=== PATIENT | female | born 1935 | race Caucasian/White ===

== ENCOUNTER 2017-05-09 13:53 | Inpatient (IN) | payer OTHER, MEDICARE ==
--- NOTE | 2017-05-09 14:21 | EDPHY ---
H & P Time Seen by Provider: 05/09/17 14:04 HPI/ROS: CHIEF COMPLAINT: Worsening back pain HISTORY OF PRESENT ILLNESS: Patient has chronic back pain and an MRI in February of last year that showed spinal stenosis worse in the L3 region. Over the last 24-48 hours she has had worsening back pain. Central and left-sided radiating to her left buttock and hip. Today it is severe and she can't get out of bed because it is much worse with any movement. It is not associated with incontinence or weakness or numbness of extremities, or recent fall injury or trauma or fever. REVIEW OF SYSTEMS: Eye: no change in vision ENT: no sore throat Cardiac: no chest pain or syncope Pulmonary: no cough or SOB. She specifically denies any respiratory symptoms. Abdomen: no vomiting, diarrhea, abdominal pain Musculoskeletal: HPI Skin: no rash Neuro: no headache Constitutional: no fever : no urinary symptoms A comprehensive 10 point review of systems is otherwise negative aside from elements mentioned in the history of present illness. PAST MEDICAL HISTORY: Atrial fibrillation, on Coumadin. Spinal stenosis. Carotid endarterectomy and appendectomy. Stroke 16 years ago. Social history: Nonsmoker. Lives at [facility]. General Appearance: Alert and conversant, cooperative. Eyes: No scleral icterus. ENT, Mouth: Normal mucous membranes. Respiratory: Normal respiratory effort, breath sounds equal, lungs are clear to auscultation. Cardiovascular: Regular rate and rhythm. Gastrointestinal: Abdomen is soft and non tender. Neurological: Alert and oriented x3. Normally conversant. Face symmetric, normal movement and sensation in all extremities. Toes downgoing bilaterally, no clonus, 1+ symmetric patellar reflexes. No spinal tenderness but she does have tenderness over the sciatic notch on the left. Skin: Warm and dry, no rashes. Musculoskeletal: No peripheral edema and no joint swelling. Psychiatric: Not agitated. Emergency Department course/MDM: Leonila Scott 1420; MRI, admit to Medicine, Neurosurgery consult I think it is unlikely she has retroperitoneal hematoma or acute spinal cord compromise or cauda equina syndrome. Does not have urinary symptoms to suggest pyelo renal colic. Admission for severe back pain inability to care for self. Initial oxygen saturation noted in the 80s but no respiratory symptoms. INR is therapeutic so pulmonary embolism unlikely. X-ray does not show infiltrate or CHF. Will monitor. Smoking Status: Former smoker Constitutional: Initial Vital Signs Temperature (C) 36.4 C 05/09/17 13:53 Heart Rate 74 05/09/17 13:53 Respiratory Rate 16 05/09/17 13:53 Blood Pressure 139/86 H 05/09/17 13:53 O2 Sat (%) 84 L 05/09/17 13:53 O2 Delivery Mode Room Air Allergies/Adverse Reactions: No Known Allergies Allergy (Unverified 02/28/16 15:27) Home Medications: Medication Instructions Recorded Levothyroxine [Synthroid 150 mcg 150 mcg PO DAILY06 02/28/16 (*)] WARFARIN SODIUM [COUMADIN] 5 mg PO DAILY@18 05/09/17 Medical Decision Making - Diagnostics Imaging Results: Imaging Impressions Chest X-Ray 05/09/17 14:37 Impression: Suspect airways disease. No pneumonia or CHF. Lumbar Spine X-Ray 05/09/17 14:37 Impression: Stable severe multilevel degenerative change. Differential Diagnosis: See HPI Consult/Admit Bed Type: [place] [id number] - Data Points Medications Given: Discontinued Medications Lorazepam (Ativan Injection) 0.5 mg IVP ONCE ONE Stop: 05/09/17 17:46 Last Admin: 05/09/17 17:48 Dose: 0.5 mg Departure - Departure Disposition: [facility] Inpatient Acute Clinical Impression: Back pain Qualifiers: Back pain location: low back pain Chronicity: acute Back pain laterality: left Sciatica presence: with sciatica Sciatica laterality: sciatica of left side Qualified Code(s): M54.42 - Lumbago with sciatica, left side Spinal stenosis Qualifiers: Spinal region: unspecified Qualified Code(s): M48.00 - Spinal stenosis, site unspecified Condition: Good
[2017-05-09 15:34] LABS: % IMMATURE GRANULYOCYTES 0.3 % (0.0-1.1); ABSOLUTE IMMATURE GRANULOCYTES 0.03 10^3/uL (0.00-0.10); ADD DIFF? NO; ADD MORPH? NO; ADD SCAN? NO; ATYPICAL LYMPHOCYTE FLAG 20 (0-99); FRAGMENT RBC FLAG 0 (0-99); HEMATOCRIT 46.7 % (38.0-47.0); HEMOGLOBIN 15.3 g/dL (12.6-16.3); LEFT SHIFT FLG 0 (0-99); LIPEMIA HEMOLYSIS FLAG 80 (0-99); MEAN CELL HEMOGLOBIN 28.8 pg (27.9-34.1); MEAN CELL HEMOGLOBIN CONCENTR. 32.8 g/dL (32.4-36.7); MEAN CELL VOLUME 87.8 fL (81.5-99.8); MEAN PLATELET VOLUME 11.5 fL (8.7-11.7); PLATELET CLUMPS FLAG 0 (0-99); PLATELET COUNT 199 10^3/uL (150-400); RED BLOOD CELL COUNT 5.32 10^6/uL (4.18-5.33); RED CELL DISTRIBUTION WIDTH 14.9 % (11.5-15.2)
[2017-05-09 15:43] LABS: INR 2.67 (0.83-1.16); PROTIME(PATIENT) 28.7 SEC (12.0-15.0)
[2017-05-09 15:44] LABS: ANION GAP 13 mEq/L (8-16); CALCIUM 9.3 mg/dL (8.5-10.4); CARBON DIOXIDE 21 mEq/l (22-31); CHLORIDE 108 mEq/L (97-110); CREATININE 1.3 mg/dL (0.6-1.0); GLOMERULAR FILTRATION RATE 39; GLUCOSE 81 mg/dL (70-100); POTASSIUM 4.6 mEq/L (3.5-5.2); SODIUM 142 mEq/L (134-144)
[2017-05-09] MEDS ORDERED: ONDANSETRON 4 MG/2 ML VIAL IVP PRN (16:07)
[2017-05-09] MEDS ORDERED: POLYETHYLENE GLYCOL 3350 17 GM PKT PO PRN (16:07)
[2017-05-09] MEDS ORDERED: LACTULOSE 20 GM/30 ML UDCUP PO PRN (16:07)
[2017-05-09] MEDS ORDERED: MAGNESIUM HYDROXIDE 30 ML UDCUP PO PRN (16:07)
[2017-05-09] MEDS ORDERED: oxyCODONE IR 5 MG TAB PO PRN (16:07)
[2017-05-09] MEDS ORDERED: BISACODYL 10 MG SUPP PR PRN (16:07)
[2017-05-09] MEDS ORDERED: LIDOCAINE 5% 1 EA PATCH TD SCH (16:15)
--- NOTE | 2017-05-09 16:29 | GHP ---
[f rep st] HISTORY AND PHYSICAL DATE OF ADMISSION: 05/09/2017 CHIEF COMPLAINT: Back pain. HISTORY OF PRESENT ILLNESS: This is an 81-year-old female with history of lumbar spinal stenosis, p resented to the emergency department with severe low back pain. The pain began yesterday after she awoke from a nap. She denies any trauma. The pain is left-sided and is below her waist and radiate s to the back of her left leg. It is described as a sharp 8/10 stabbing pain that is worse with mov ement. The pain is preventing her from being able to walk. She took some Tylenol at home without a ny improvement. Since the onset of her symptoms, she has not gotten out of bed. She was not able t o get out of bed for dinner last night. She denies any fevers or chills. She denies any weight los s. PAST MEDICAL HISTORY: 1. Atrial fibrillation, on Coumadin. 2. Pre diabetes. 3. 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 4. Spinal stenosis. 5. Hypothyroidism. PAST SURGICAL HISTORY: 1. Carotid endarterectomy. 2. Appendectomy. HOME MEDICATIONS: Reviewed. Refer to [employer] for details. ALLERGIES: No known drug allergies. SOCIAL HISTORY: She lives at [facility]. She quit smoking 16 years ago after her stroke. She denies any alcohol or illicit drug use. FAMILY HISTORY: Reviewed and noncontributory. REVIEW OF SYSTEMS: Comprehensive 10-point review of systems was done and is negative, except for as mentioned in the HPI. PHYSICAL EXAM: VITAL SIGNS: Blood pressure 139/86, pulse 74, respiratory rate 16, O2 saturation 84 % on room air. Temperature afebrile. GENERAL: No acute distress. HEAD: Normocephalic, atraumati c. EYES: PERRLA. Sclerae anicteric. MOUTH: Moist mucous membranes. NECK: Supple. No lymphade nopathy. CARDIOVASCULAR: S1-S2. No JVD. No lower extremity edema. PULMONARY: Lungs are clear. No wheezes, rales, or rhonchi. Diminished breath sounds bilateral bases. ABDOMEN: Soft, nontende r, nondistended. No guarding or rebound tenderness. Normoactive bowel sounds. EXTREMITIES: No cl ubbing or cyanosis. NEURO: Cranial nerves 2-12 grossly intact. No focal motor or sensory deficits . No saddle anesthesia. The patient denies any bowel or bladder incontinence. Muscle strength 5/5 bilateral lower extremity flexion, extension at the hip and at the ankle. DTRs are 2+ and symmetri c at the patella. SKIN: Clear, no rashes. DIAGNOSTICS: MRI of the lumbar spine done 02/28/2016 was reviewed that showed severe acquired centr al canal stenosis at L2-L3 with tethering of the cauda equina. Superimposed right paracentral protr usion with lateral recess stenosis and moderate to severe acquired central canal stenosis at L3-L4. Lumbar x-rays are currently pending. Chest x-ray, which I visualized and personally interpreted, s hows no cardiomegaly. No obvious pneumonia. WBCs 8.64, hemoglobin 15.3, hematocrit 46.7, platelets 199. INR 2.67, sodium 142, potassium 4.6, chloride 108, CO2 21, BUN 25, creatinine 1.3, glucose 81 . ASSESSMENT/PLAN: This is an 81-year-old female, with known spinal stenosis presenting with: 1. Atraumatic severe low back pain causing immobility, gait disturbance. 2. Plan: At this time, the patient will be admitted to the hospital since she is unable to walk or care for self at her independent living situation. We will hold her Coumadin in case she ends up n eeding an ELDON. Neurosurgery has been consulted. The patient does not appear to have any signs or s ymptoms of cauda equina syndrome. 3. Hypoxemia. Unclear if this is acute or chronic. It does appear to be asymptomatic. Plan: The patient will be placed on supplemental oxygen and we will have monitoring of her oxygen saturations . 4. History of hypothyroidism. 5. Plan: We will check a TSH since suppressed TSH can be a cause for osteopenia. 6. The patient is high risk for VTE and will be placed on Lovenox for deep venous thrombosis prophy laxis, once her INR has normalized. We will repeat INR in the morning. /[id number]/MODL
[2017-05-09] MEDS ORDERED: LORazepam 2 MG/ML INJ IVP ONE (17:45)
[2017-05-09] MEDS: SENNOSIDES/DOCUSATE SODIUM TAB PO SCH (20:39)
[2017-05-09] MEDS ORDERED: PATCH REMOVAL 1 EA PATCH TD SCH (21:00)
--- NOTE | 2017-05-10 02:50 | GCON ---
[f rep st] CONSULTATION DATE OF CONSULTATION: 05/09/2017 CHIEF COMPLAINT: Left lower back pain, right hip, right buttock pain in the morning HISTORY OF PRESENT ILLNESS: This patient is an 81-year-old female, being seen in the ER by myself at 2:45 p.m. The patient presented to the ER today with increasing back symptoms. She describes her symptoms as left lower back pain. At this time, she denies any radicular symptoms, but does note that she has some right hip and right buttock pain when she is first getting out of bed in the morning. The patient states that she had persistent leg pain approximately 20 years ago , which was resolved with acupuncture at the time, but is unable to recall which leg or which part of her leg was affected. She does have bowel and bladder incontinence and she states she wears Depends for this for the last 16 years. She states these bowel and bladder issues began following a stroke 16 years ago and describes them more as an urge incontinence, where she does not have time to get to the restroom. She denies any saddle anesthesia. Patient has had several years of lower back pain. She has been seen by physicians at [facility] previously, but has never undergone any therapeutic injections into her spine. REVIEW OF SYSTEMS: Nagetive except for those noted in the HPI. PAST MEDICAL HISTORY: Patient had a stroke 16 years ago. She has atrial fibrillation. hypothyroidism. PAST SURGICAL HISTORY: Carotid surgery 16 years ago, appendectomy. FAMILY HISTORY: Patient states her mom had a history of breast cancer, myocardial infarction, and bladder cancer. Her father had skin cancer. SOCIAL HISTORY: Patient lives in independent residence at [facility]. She does not smoke. She takes sips of wine socially. She denies any drug use. MEDICATIONS: Coumadin, levothyroxine ALLERGIES: No known drug allergies. PHYSICAL EXAMINATION: Patient is alert and oriented to person, time, situation , and place. UPPER EXTREMITIES: Deltoid, biceps, and triceps, wrist extensors, interossei bilaterally are 5/5. LOWER EXTREMITIES: Quadriceps, hamstrings, extensor hallucis longus, tibialis anterior bilaterally are all 5/5. Bilateral lower extremities, sensory intact to light touch throughout. Did not assess patient's gait, for she is on a stretcher. DIAGNOSTIC DATA: MRI of the lumbar spine, without contrast, that was performed on February 28, 2016, demonstrated severe central canal stenosis at L2-3 with tethering of the cauda equina and superimposed right paracentral protrusion with lateral recess stenosis. Also, had [id number] acquired central canal stenosis at L3-4. Pending new MRI of the lumbar sine without contrast today, as well as x-rays of the lumbar spine to evaluate her present condition. ASSESSMENT AND PLAN: Patient is an 81-year-old female, presenting to the emergency room today with increasing left lower back pain. She has a history of bowel and bladder incontinence for approximately 16 years and feels that this correlates with her post stroke symptoms. We will have the patient get a new lumbar MRI as well as x-rays of her lumbar spine to evaluate her current condition. If injection therapy or surgery were to be offered, she will need to be off her Coumadin for any procedures. Patient is not interested in pursing a surgical solution to her problem. Patient was seen in the emergency room today, May 09, 2017, at 2:35 p.m., and the patient was discussed with Dr. Nascimento as well. NEUROSURGERY ATTENDING NOTE I met with the patient on the evening of her admission. She has known stenosis and about 24 hours of pain into her back. She has a normal clinical examination and no red flag findings.. Will obtain imaging studies and treat with conservative management. She is not interested in surgery. All questions answered. /[id number]/MODL MTDD
[2017-05-10] MEDS: LEVOTHYROXINE 150 MCG TAB PO SCH (05:13)
[2017-05-10] MEDS: PATCH REMOVAL 1 EA PATCH TD SCH (05:22)
[2017-05-10 05:44] LABS: INR 2.82 (0.83-1.16)
[2017-05-10] MEDS: SENNOSIDES/DOCUSATE SODIUM TAB PO SCH ×2 (08:34→20:16)
--- NOTE | 2017-05-10 08:40 | NEUSURGPN ---
Assessment/Plan: A: 81 yo F with low back pain, right hip pain, severe stenosis L2-3, L3-4 Plan: -Pain management -PT/OT -Need to see how patient does with therapies today. If pain improved can work towards DC. If she has persistent pain and is unable to ambulate need to consider ELDON -Neuro intact on exam today -D/w Dr Nascimento -Call NS with any issues Subjective: Pt resting in bed, states she was able to get up to bedside commode. Thinks pain slightly improved. Objective: AAOx3 NAD VSS MAEx4 Motor 5/5 BLE +LT Urinary Catheter in Place: No - Physician Discussed Patient with : [facility] Physical Exam - Vitals, I&O, Labs I and O 05/09/17 05/10/17 05/11/17 05:59 05:59 05:59 Intake Total 600 Balance 600 Weight 81.647 kg Intake: Oral (ml) 600 Other: Number of Voids Incontinence 1 Vital Signs Temp Pulse Resp BP Pulse Ox 36.7 C 83 16 125/70 H 90 L 05/10/17 08:05 05/10/17 08:05 05/10/17 08:05 05/10/17 08:05 05/10/17 08:05 Laboratory Results 05/09/17 15:27 05/09/17 15:27 ICD10 Worksheet Patient Problems: Problems Problem Status Onset Back pain Acute Spinal stenosis Acute
[2017-05-10] MEDS: ACETAMINOPHEN 325 MG TAB PO PRN ×2 (08:41→17:25)
[2017-05-10] MEDS: METHOCARBAMOL 500 MG TAB PO PRN ×2 (08:42→17:25)
--- NOTE | 2017-05-10 11:13 | HOSPPROG ---
Hospitalist Progress Note Assessment/Plan: DIAGNOSES: -acute sciatica without weakness or cauda equina syndrome -impaired ambulation due to above -severe central canal stenosis and bilateral foraminal stenosis on MRI of lumbar spine Notably she has acutely a complaint of left lumbar back pain, with radiation to the posterior left leg, but also has pain in the right buttock which is more chronic. Her MRI findings show central canal stenosis but the foramina stenoses are on the right. Therefore her right-sided foraminal stenoses could potentially impact her chronic right buttock pain but not likely her acute presenting symptoms, which if related to her spine findings would be more than related to her central canal stenosis. There is some improvement here with conservative treatment overnight so hopefully we can continue with conservative measures and have her discharge soon. She does have a history of a prior episode of sciatica which successfully responded to acupuncture therapy PLANS: -continue current measures and reassess her pain levels and mobility -home when she has satisfactory pain control and safe mobility SUBJECTIVE: She states her pain has improved somewhat today and she is able to get up with a walker and ambulate in the hallway moderate distance No new neurologic deficits or symptoms OBJECTIVE Vitals reviewed: Stable without fever Exam: alert oriented skin warm dry color ok resps not labored lungs clear BSs heart regular abd soft nondistended nontender, bowel sounds present Moving her legs well Objective: Vital Signs Temp Pulse Resp BP Pulse Ox 36.7 C 83 16 125/70 H 90 L 05/10/17 08:05 05/10/17 08:05 05/10/17 08:05 05/10/17 08:05 05/10/17 08:05 Laboratory Results 05/09/17 15:27 05/09/17 15:27 05/09/17 05/10/17 05/11/17 06:59 06:59 06:59 Intake Total 600 Balance 600 PT 30.0 SEC (12.0-15.0) H 05/10/17 05:22 INR 2.82 (0.83-1.16) H 05/10/17 05:22 ICD10 Worksheet Patient Problems: Problems Problem Status Onset Back pain Acute Spinal stenosis Acute
[2017-05-10] MEDS ORDERED: LIDOCAINE 5% 1 EA PATCH TD SCH (19:00)
[2017-05-11] MEDS: LEVOTHYROXINE 150 MCG TAB PO SCH (06:02)
[2017-05-11] MEDS: PATCH REMOVAL 1 EA PATCH TD SCH (06:03)
[2017-05-11 06:06] VITALS: RESP 16
[2017-05-11 08:39] VITALS: BP 104/58; PULSE 80; TEMP 97.9; O2SAT 91
[2017-05-11] MEDS: SENNOSIDES/DOCUSATE SODIUM TAB PO SCH (09:24)
--- NOTE | 2017-05-11 13:21 | HOSPPROG ---
Hospitalist Progress Note Assessment/Plan: 81 yo F with hx of lumbar spinal stenosis presenting with severe radicular back pain # lumbar radiculopathy: with hx of lumbar stenosis and presenting initially with severe low back pain radiating to her left leg. Sxs have improved significantly since admission and she is now ambulating nearly at baseline. MRI personally reviewed with severe central canal stenosis at L2-3 and L3-4. NSG consulted for possible ELDON, however given patient preference and rapid improvement, this is unlikely to be necessary. Patient states in the past when this occurred, she was essentially healed by acupuncture. Will see if she can get IP versus f/u acupuncture, continue pt/ot and likely dc back to independent living with home health today # a fib: will continue warfarin, rate controlled # hypothyroid: continue lt4 # dispo: IP status, likely can dc home today with home health Patient new to my care. Old records reviewed and summarized as above. Care plan reviewed with CM> Subjective: doing much better today, pain is much improved, ambulating nearly at baseline Objective: Vital Signs Temp Pulse Resp BP Pulse Ox 36.6 C 80 16 104/58 L 91 L 05/11/17 08:39 05/11/17 08:39 05/11/17 08:39 05/11/17 08:39 05/11/17 08:39 Laboratory Results 05/09/17 15:27 05/09/17 15:27 05/10/17 05/11/17 05/12/17 05:59 05:59 05:59 Intake Total 600 Output Total 4 Balance 600 -4 PT 30.0 SEC (12.0-15.0) H 05/10/17 05:22 INR 2.82 (0.83-1.16) H 05/10/17 05:22 awake alert nad anicteric op clear rrr no mrg cta b soft nt nd no cce warm dry well perfused oriented appropriate ICD10 Worksheet Patient Problems: Problems Problem Status Onset Back pain Acute Spinal stenosis Acute
--- NOTE | 2017-05-11 13:28 | PDIAF ---
- Diagnosis Code Status: Full Code - Medication Management Discharge Medications: Medications to Continue on Transfer Levothyroxine [Synthroid 150 mcg (*)] 150 mcg PO DAILY06 02/28/16 [Last Taken ] WARFARIN SODIUM [COUMADIN] 5 mg PO DAILY@18 05/09/17 [Last Taken 05/08/17] Acetaminophen [Tylenol 325mg (*)] 650 mg PO Q6 PRN #0 tab 05/11/17 [Last Taken Unknown] Lidocaine 5% [Lidoderm 5% Patch (*)] 1 ea TD DAILY@1900 #30 patch 05/11/17 [ Last Taken Unknown] Methocarbamol [Robaxin 500 mg (*)] 1,000 mg PO QID PRN #60 tab 05/11/17 [Last Taken Unknown] Patch Removal 1 ea TD DAILY@0700 #30 patch 05/11/17 [Last Taken Unknown] Sennosides/Docusate Sodium [Senokot-S] 1 - 2 tab PO BID tab 05/11/17 [Last Taken Unknown] oxyCODONE IR [Oxycodone Ir (*)] 5 - 10 mg PO Q6 PRN #30 tab 05/11/17 [Last Taken Unknown] Discharge Medications: Refer to the Discharge Home Medication list for PRN reason. - Orders Services needed: Home Care, Registered Nurse, Physical Therapy, Occupational Therapy Home Care Face to Face: I certify that this patient was under my care and that I had the required [id number] encounter meeting the encounter requirements on the discharge day. My findings support the fact that the patient is homebound as defined in CMS Chapter 7 Medicare Benefits Manual 30.1.1, The condition of the patient is such that there exists a normal inability to leave home and consequently, leaving home would require a considerable and taxing effort. Diet Recommendation: no restrictions on diet - Follow Up Care Current Providers and Referrals: Padmini Gordillo MD [Primary Care Provider] - As per Instructions
--- NOTE | 2017-05-11 13:28 | PDDCSUM ---
Discharge Summary Discharge Summary: Dates of service 05/09-05/11/17 Discharge diagnosis: # lumbar radiculopathy # a fib Consultations: neurosurgery Procedures performed: lumbar MRI Hospital course by problem: # lumbar radiculopathy: initially with severe pain that rapidly improved, seems muscle relaxants have made a huge difference and pain is currently well controlled. will dc home with home pt/ot and flexeril. # a fib: not on any rate controlling meds, will continue warfarin, is currently therapeutic Dc home, lives independently, will continue pt/ot Meds: see EHR > 35 minutes spent in discharge of patient, more than half in coordination of care
--- NOTE | 2017-05-11 15:31 | PDIAF ---
- Diagnosis Code Status: Full Code - Medication Management Discharge Medications: Medications to Continue on Transfer Levothyroxine [Synthroid 150 mcg (*)] 150 mcg PO DAILY06 02/28/16 [Last Taken ] WARFARIN SODIUM [COUMADIN] 5 mg PO DAILY@18 05/09/17 [Last Taken 05/08/17] Acetaminophen [Tylenol 325mg (*)] 650 mg PO Q6 PRN #0 tab 05/11/17 [Last Taken Unknown] Cyclobenzaprine [Flexeril 10 MG (*)] 10 mg PO TID PRN #90 tab 05/11/17 [Last Taken Unknown] Lidocaine 5% [Lidoderm 5% Patch (*)] 1 ea TD DAILY@1900 #30 patch 05/11/17 [ Last Taken Unknown] Patch Removal 1 ea TD DAILY@0700 #30 patch 05/11/17 [Last Taken Unknown] Sennosides/Docusate Sodium [Senokot-S] 1 - 2 tab PO BID tab 05/11/17 [Last Taken Unknown] oxyCODONE IR [Oxycodone Ir (*)] 5 - 10 mg PO Q6 PRN #30 tab 05/11/17 [Last Taken Unknown] Discharge Medications: Refer to the Discharge Home Medication list for PRN reason. - Orders Services needed: Home Care, Physical Therapy, Occupational Therapy Home Care Face to Face: I certify that this patient was under my care and that I had the required [id number] encounter meeting the encounter requirements on the discharge day. My findings support the fact that the patient is homebound as defined in CMS Chapter 7 Medicare Benefits Manual 30.1.1, The condition of the patient is such that there exists a normal inability to leave home and consequently, leaving home would require a considerable and taxing effort. Diet Recommendation: no restrictions on diet - Follow Up Care Current Providers and Referrals: Padmini Gordillo MD [Primary Care Provider] - As per Instructions
[2017-05-11] MEDS ORDERED: WARFARIN SODIUM 2.5 MG TAB PO SCH (18:00)
== END 2017-05-11 15:39 | DRG 552 ==
LOC: EDUNIT# → F1N 15:51
PROVIDERS: ADMIT Family Medicine; ATTEND Family Medicine
DX: M54.16 Radiculopathy, lumbar region (principal); M48.06 Spinal stenosis, lumbar region; I48.91 Unspecified atrial fibrillation; Z79.01 Long term (current) use of anticoagulants
CPT/HCPCS: 97116-GP; 97161-GP; 97165-GO; 97530-GP; G8978-GP-CI; G8979-GP-CI; G8987-GO-CI; G8988-GO-CH; G8989-GO-CH; J2060

== ENCOUNTER 2017-05-13 15:38 | Inpatient (IN) | payer OTHER, MEDICARE ==
--- NOTE | 2017-05-13 16:05 | EDPHY ---
HPI/HX/ROS/PE/MDM Narrative: CHIEF COMPLAINT: Back pain HISTORY OF PRESENT ILLNESS: This patient is an anticoagulated 81 year old female with history of lumbar spinal stenosis arriving via EMS complaining of back pain. She was recently admitted 05/09/17 for back pain. This pain was well controlled with Flexeril, and the patient was discharged home in good condition 05/11/17 with prescriptions for Oxycodone, Flexeril, and Lidocaine patches. The patient states she was unable to fill her prescriptions for the Flexeril and Lidocaine patches, and is unable to attain the assistance she needs from [facility], where she lives independently, to do so. She reports her pain has returned, and she was unable to get up from bed for many hours. She describes her pain as being localized across her low back, somewhat worse on the left, exacerbated by standing. She denies numbness or tingling in her legs. No fever, chills, chest pain, shortness of breath, palpitations, vomiting, diarrhea, urinary complaints , headache, lightheadedness. REVIEW OF SYSTEMS: Aside from elements discussed in the HPI, a comprehensive 10-point review of systems was reviewed and is negative. PAST MEDICAL HISTORY: Stroke 16 years ago, Atrial fibrillation (Coumadin) Hypothyroid (Levothyroxine), Spinal stenosis, Pre-diabetes Past medical records reviewed including admission from 05/09/17. SOCIAL HISTORY: Lives at [facility]. Former smoker, quit 16 years ago General appearance: Uncomfortable appearing. Moving slowly about the bed. Focused examination of back: No trauma is noted. No tenderness to palpation along the spine. Paraspinous muscle spasm is present. Neurological exam: Straight leg raise test is negative bilaterally. Hip flexion, knee extension, knee flexion, dorsiflexion and plantar flexion are 5/ 5 bilaterally. EHL 5 over 5. Sensation is intact to light touch throughout. 2 + knee and ankle jerk bilaterally. Vascular exam: Dorsalis pedis and posterior tibial pulses are intact. Brisk capillary refill. HEENT: Atraumatic. Benign exam. LUNGS: Clear to auscultation bilaterally, no wheezes, rhonchi or rales. CARDIAC: Regular rate and rhythm, no rubs, murmurs or gallops. ABDOMEN: Soft, nontender, nondistended, bowel sounds normal. NEURO: Alert and oriented, grossly nonfocal. SKIN: Warm and dry, no rash. PSYCHIATRIC: Normal mentation, no agitation. Portions of this note were transcribed by a medical sales representative. I personally performed a history, physical exam, medical decision making, and confirmed accuracy of information the transcribed note. ED Course: This patient is an 81 year old female presenting with an exacerbation of back pain for which she was admitted 05/09/17. Physical exam reveals tenderness across her low back, slightly more on the left than the right. The patient's discharge summary suggests her pain was well controlled with Flexeril, but the patient was unable to fill that prescription and her pain is now worse again. Plan to administer 10mg PO Flexeril and 5% Lidocaine patch to control pain. The patient states she is unable to control her pain and symptoms at her independent living facility. Plan to admit for continued management of her back pain. MDM: After history was obtained and physical exam performed, the differential for back pain was considered including but not limited to muscular pain, herniated disc, spine fracture, spinal stenosis, intra-abdominal causes, and urinary tract infection. - Data Points Medications Given: Discontinued Medications Cyclobenzaprine HCl (Flexeril) 10 mg PO EDNOW ONE Stop: 05/13/17 16:13 Last Admin: 05/13/17 16:30 Dose: 10 mg Lidocaine (Lidoderm 5%) 1 ea TD EDNOW ONE Stop: 05/13/17 16:13 Last Admin: 05/13/17 16:46 Dose: 1 ea General Time Seen by Provider: 05/13/17 15:53 Initial Vital Signs: Initial Vital Signs Temperature (C) 36.8 C 05/13/17 15:45 Heart Rate 80 05/13/17 15:45 Respiratory Rate 16 05/13/17 15:45 Blood Pressure 136/82 H 05/13/17 15:45 O2 Sat (%) 94 05/13/17 15:45 O2 Delivery Mode Nasal Cannula O2 (L/minute) 4 Allergies/Adverse Reactions: No Known Allergies Allergy (Unverified 02/28/16 15:27) Home Medications: Medication Instructions Recorded Atorvastatin Calcium [Lipitor 20 20 mg PO DAILY 05/13/17 mg (*)] Cyclobenzaprine [Flexeril 10 MG 10 mg PO TID PRN 05/13/17 (*)] Levothyroxine Sodium 150 mcg PO DAILY 05/13/17 [Levothyroxine Sodium] Warfarin Sodium [Coumadin] 5 mg PO HS 05/13/17 oxyCODONE IR [Oxycodone Ir (*)] 5 - 10 mg PO Q4H PRN 05/13/17 Departure - Departure Disposition: [facility] Inpatient Acute Clinical Impression: Back pain Qualifiers: Back pain location: low back pain Chronicity: unspecified Back pain laterality : left Sciatica presence: without sciatica Qualified Code(s): M54.5 - Low back pain Spinal stenosis Qualifiers: Spinal region: unspecified Qualified Code(s): M48.00 - Spinal stenosis, site unspecified Condition: Fair Report Scribed for: Bethanie Mota Report Scribed by: Heide Melchor Date of Report: 05/13/17 Time of Report: 16:38
[2017-05-13] MEDS ORDERED: LIDOCAINE 5% 1 EA PATCH TD ONE (16:12)
[2017-05-13] MEDS ORDERED: CYCLOBENZAPRINE 10 MG TAB PO ONE (16:12)
--- NOTE | 2017-05-13 18:19 | PDGENHP ---
History and Physical History and Physical: HISTORY AND PHYSICAL CC: Lumbar back pain, and debility to ambulate HISTORY: This patient who was just in the hospital with lumbar back pain and sciatica comes back in with the same pain. She had awakened on May 08 from a nap with severe low back pain and radiation into her left leg. This did not go down below her knee and there was no numbness or change in bowel or bladder function. There has been no injuries. The patient was admitted to the hospital where she was treated with conservative measures. A lumbar Lidoderm patch has been added which was of great benefit for symptom relief for her. She was up in the hallway walking with a walker and had no worsening symptoms or new neurologic changes. She was felt stable for discharge and went back to her independent living apartment at [facility] 2 days ago. However since being there she has been almost the entire last 2 days in bed and has been unable really to get up and take care of herself. She has been wetting her bed as she was unable to get to the commode to urinate. The pain has not changed in location and she has not developed any new numbness or weakness or loss of function of bowel or bladder. She was brought here by ambulance today. Remarkably at the time of discharge from the hospital here 2 days ago she was prescribed Lidoderm patches and some narcotic analgesic. It sounds like most of these medicines were for reasons unknown to me not filled or not obtained by the patient. It sounds like she was relying on [facility] to trying get the medicines for her and this did not occur. As she returns now to the hospital she is given Lidoderm patch and some narcotic analgesic here today and this is giving her some relief but she is still not able to get up and ambulate adequately or safely at this time. She denies fevers chills sweats, dysuria, cough or shortness of breath, nausea or vomiting ROS: A comprehensive 10 system review revealed no other significant findings PAST MEDICAL HISTORY: Atrial fibrillation on Coumadin Stroke 16 years ago with right-sided deficits Carotid endarterectomy Pre diabetes Spinal stenosis with some chronic right-sided symptoms relates that Hypothyroidism Appendectomy FAMILY MEDICAL HISTORY: She is not aware of any significant illnesses and relatives SOCIAL HISTORY: She lives by herself in a this independent living apartment at [facility]. Quit smoking uses no alcohol or tobacco MEDICATIONS: The patients list has been reconciled by our clinical pharmacist in the EMR. I have reviewed the list and ordered appropriate medicines. PHYSICAL EXAMINATION: Vital Signs: Normal without fever Examination: General: alert, oriented, good mentation, relaxed Skin: warm, dry, good color, no rash HEENT: normal Neck: no mass or jvd Resps: relaxed Lungs: clear breath sounds Heart: regular, no murmur Abdomen: soft, nondistended, nontender, +BS Lower Extremities: no edema, warm; no weakness or loss of sensation No Bleeding or bruising Neurologic: normal speech/language, normal hospital coordinator, no focal weakness IV site: looks normal ASSESSMENT: -ONGOING ACUTE LEFT LUMBAR PAIN WITH RADIATION INTO THE LEFT LEG, NONTRAUMATIC -GAIT INSTABILITY DUE TO THE ABOVE, UNSAFE TO BE AT HOME WITH FALL RISK AND UNABLE TO CARE FOR HERSELF -CHRONIC SEVERE LUMBAR SPINAL STENOSIS -CHRONIC RIGHT-SIDED FORAMINAL STENOSES AND HISTORY OF SOME CHRONIC RIGHT-SIDED SCIATICA During the patient's previous hospitalization she was recovering reasonably well. As she got home she was not thriving due to the ongoing pain. It is hard to tell how well she would have done had she had the same pain medicines at home that she had been given here. Clearly at this time she is not moving well enough to be at home but whether she will improve and be able to return home or will need other rehabilitation is uncertain. From what I am told she is 1st on the list at this time for [facility] to have a bed there for rehabilitation but there is no bed available today. Their full will need to treat her here in the hospital. PLANS: -placed on obs here at [facility] and begin the process of trying to get her back on her feeding going as well as trying to get her back to [facility] either at her apartment or at SNF -Continue her current medications including Lidoderm patch and analgesics -will add some prednisone to see if this helps her as well -if she does not have good improvement of pain may need to consider epidural steroid injection -continue her Coumadin and recheck INR -DVT prophylaxis is taking care of by her Coumadin I have reviewed the patient's case in detail with Dr. Bethanie Mota I have reviewed the patient's past medical records as part of this assessment, including previous hospital admission records
[2017-05-13] MEDS ORDERED: predniSONE 20 MG TAB PO ONE (18:29)
[2017-05-13] MEDS ORDERED: ONDANSETRON 4 MG/2 ML VIAL IVP PRN (18:30)
[2017-05-13] MEDS ORDERED: ONDANSETRON DISINTEGRATING 4 MG TAB PO PRN (18:30)
[2017-05-13] MEDS: oxyCODONE IR 5 MG TAB PO PRN (19:58)
[2017-05-13] MEDS: WARFARIN SODIUM 5 MG TAB PO SCH (19:59)
[2017-05-13] MEDS ORDERED: PATCH REMOVAL 1 EA PATCH TD SCH (21:00)
[2017-05-14] MEDS: oxyCODONE IR 5 MG TAB PO PRN (04:33)
[2017-05-14] MEDS: LEVOTHYROXINE 150 MCG TAB PO SCH (04:33)
[2017-05-14 05:06] LABS: INR 1.55 (0.83-1.16); PROTIME(PATIENT) 18.6 SEC (12.0-15.0)
[2017-05-14] MEDS: ATORVASTATIN CALCIUM 20 MG TAB PO SCH (09:57)
[2017-05-14] MEDS: predniSONE 20 MG TAB PO SCH (09:57)
[2017-05-14] MEDS: LIDOCAINE 5% 1 EA PATCH TD SCH ×2 (11:57→11:59)
--- NOTE | 2017-05-14 14:57 | HOSPPROG ---
Hospitalist Progress Note Assessment/Plan: 81 y.o female with severe lumbar stenosis presenting with pain and inability to ambulate # Severe Lumbar stenosis with lumbar radiculopathy - with severe left sided pain and weakness MRI (personally reviewed and interpreted) severe stenosis L2-L4 patient reports markedly improved pain control overnight - cont lidoderm patch - cont prn oxycodone - cont prednisone overnight - can likely dc tomorrow - cont PT/OT # Acute hypoxic respiratory failure- suspect 2/2 atelectasis and narcotics - oxygen saturations 95% on 2L - limit sedating meds where able - agree with IS # atrial fibrillation - currently rate controlled in 70's - cont warfarin anticoagulation - INR in am # hypothyroidism - cont levothyroxine # proph - warfarin # diet - regular tolerating good PO # dispo - > 2MN as requiring pain medication titration and PT/OT for safe disposition I have discussed the case with RN - will work on IS and wean narcotics where able Subjective: pain improved overnight Objective: Vital Signs Temp Pulse Resp BP Pulse Ox 36.8 C 79 18 95/59 L 91 L 05/14/17 09:50 05/14/17 09:50 05/14/17 09:50 05/14/17 09:50 05/14/17 09:50 05/13/17 05/14/17 05/15/17 05:59 05:59 05:59 Intake Total 400 Output Total 100 Balance 300 PT 18.6 SEC (12.0-15.0) H 05/14/17 04:40 INR 1.55 (0.83-1.16) H 05/14/17 04:40 - Physical Exam Constitutional: appears nourished Eyes: anicteric sclera Ears, Nose, Mouth, Throat: moist mucous membranes Cardiovascular: regular rate and rhythym Respiratory: no respiratory distress, No inspiratory crackles Gastrointestinal: normoactive bowel sounds Genitourinary: no bladder fullness Skin: warm, normal color Musculoskeletal: No asymmetric calves Neurologic: AAOx3 Psychiatric: interacting appropriately, not anxious Lymph, Heme, Immunologic: no cervical LAD ICD10 Worksheet Patient Problems: Problems Problem Status Onset Back pain Acute Spinal stenosis Acute
[2017-05-14] MEDS: CYCLOBENZAPRINE 10 MG TAB PO PRN ×2 (17:57→21:43)
[2017-05-14] MEDS: ACETAMINOPHEN 325 MG TAB PO PRN ×2 (17:57→21:43)
[2017-05-14] MEDS: PATCH REMOVAL 1 EA PATCH TD SCH (21:44)
[2017-05-14] MEDS: WARFARIN SODIUM 5 MG TAB PO SCH (21:44)
[2017-05-15 04:30] LABS: INR 1.88 (0.83-1.16); PROTIME(PATIENT) 21.7 SEC (12.0-15.0)
[2017-05-15] MEDS: LEVOTHYROXINE 150 MCG TAB PO SCH (05:11)
[2017-05-15] MEDS: ACETAMINOPHEN 325 MG TAB PO PRN ×3 (05:11→21:22)
[2017-05-15] MEDS: CYCLOBENZAPRINE 10 MG TAB PO PRN ×2 (05:11→21:21)
[2017-05-15] MEDS: LIDOCAINE 5% 1 EA PATCH TD SCH (08:52)
[2017-05-15] MEDS: predniSONE 20 MG TAB PO SCH (08:53)
[2017-05-15] MEDS: ATORVASTATIN CALCIUM 20 MG TAB PO SCH (08:53)
--- NOTE | 2017-05-15 13:31 | HOSPPROG ---
Hospitalist Progress Note Assessment/Plan: 81 y.o female with severe lumbar stenosis presenting with pain and inability to ambulate # Severe Lumbar stenosis with lumbar radiculopathy - with severe left sided pain and weakness MRI severe stenosis L2-L4 patient reports markedly improved pain control overnight - cont lidoderm patch - cont prn oxycodone - dc prednisone today - cont PT/OT # Acute hypoxic respiratory failure- suspect 2/2 atelectasis and narcotics - oxygen saturations 96% on 4L CXR (personally reviewed and interpreted) no infiltrates or edema - limit sedating meds where able - agree with IS # atrial fibrillation - currently rate controlled in 70's- INR 1.8 this am - cont warfarin anticoagulation - INR in am # hypothyroidism - cont levothyroxine # proph - warfarin # diet - regular tolerating good PO # dispo - > 2MN as requiring pain medication titration and PT/OT for safe disposition I have discussed the case with RN - continue to work on IS for hypoxia Subjective: restless night Objective: Vital Signs Temp Pulse Resp BP Pulse Ox 36.5 C 68 16 119/70 96 05/15/17 07:42 05/15/17 07:42 05/15/17 07:42 05/15/17 07:42 05/15/17 07:42 05/14/17 05/15/17 05/16/17 05:59 05:59 05:59 Intake Total 2600 Output Total 300 250 Balance 2300 -250 PT 21.7 SEC (12.0-15.0) H 05/15/17 03:27 INR 1.88 (0.83-1.16) H 05/15/17 03:27 - Physical Exam Constitutional: appears nourished Eyes: anicteric sclera Ears, Nose, Mouth, Throat: moist mucous membranes Cardiovascular: regular rate and rhythym, no murmur, rub, or gallop Respiratory: no respiratory distress, no rales or rhonchi Gastrointestinal: normoactive bowel sounds, soft, non-tender abdomen Genitourinary: no bladder fullness Skin: warm, normal color Musculoskeletal: No asymmetric calves Neurologic: AAOx3 Psychiatric: interacting appropriately, not anxious Lymph, Heme, Immunologic: no cervical LAD ICD10 Worksheet Patient Problems: Problems Problem Status Onset Back pain Acute Spinal stenosis Acute
[2017-05-15] MEDS: WARFARIN SODIUM 5 MG TAB PO SCH (21:21)
[2017-05-15] MEDS: PATCH REMOVAL 1 EA PATCH TD SCH (21:26)
[2017-05-16 04:33] LABS: INR 2.32 (0.83-1.16); PROTIME(PATIENT) 25.7 SEC (12.0-15.0)
[2017-05-16] MEDS: LEVOTHYROXINE 150 MCG TAB PO SCH (06:17)
[2017-05-16] MEDS: oxyCODONE IR 5 MG TAB PO PRN (08:41)
[2017-05-16] MEDS: predniSONE 20 MG TAB PO SCH (08:43)
[2017-05-16] MEDS: ATORVASTATIN CALCIUM 20 MG TAB PO SCH (08:43)
[2017-05-16] MEDS: LIDOCAINE 5% 1 EA PATCH TD SCH (09:42)
--- NOTE | 2017-05-16 16:20 | HOSPPROG ---
Hospitalist Progress Note Assessment/Plan: 81 y.o female with severe lumbar stenosis presenting with pain and inability to ambulate # Severe Lumbar stenosis with lumbar radiculopathy - with severe left sided pain and weakness MRI severe stenosis L2-L4 patient reports markedly improved pain control overnight - cont lidoderm patch - cont prn oxycodone - cont PT/OT # Acute hypoxic respiratory failure- suspect 2/2 atelectasis and narcotics - oxygen saturations 91% on 4L CXR (personally reviewed and interpreted) no infiltrates or edema - limit sedating meds where able - agree with IS - consider repeat CXR if sats don't improve # atrial fibrillation - currently rate controlled in 70's- INR 2.3 this am - cont warfarin anticoagulation - INR in am # hypothyroidism - cont levothyroxine # proph - warfarin # diet - regular tolerating good PO # dispo - > 2MN as requiring pain medication titration and PT/OT for safe disposition- hopeful tomorrow I have discussed the case with RN - really encourage activity and incentive spirometry Subjective: Pain persist Objective: Vital Signs Temp Pulse Resp BP Pulse Ox 36.8 C 88 16 114/72 91 L 05/16/17 15:42 05/16/17 15:42 05/16/17 15:42 05/16/17 15:42 05/16/17 15:42 05/15/17 05/16/17 05/17/17 05:59 05:59 05:59 Intake Total 2600 400 500 Output Total 300 850 Balance 2300 -450 500 PT 25.7 SEC (12.0-15.0) H 05/16/17 03:56 INR 2.32 (0.83-1.16) H 05/16/17 03:56 - Physical Exam Constitutional: appears nourished Eyes: anicteric sclera Ears, Nose, Mouth, Throat: moist mucous membranes Cardiovascular: regular rate and rhythym Respiratory: no respiratory distress, no rales or rhonchi, No inspiratory crackles Gastrointestinal: normoactive bowel sounds Genitourinary: no bladder fullness Skin: warm, normal color Musculoskeletal: No asymmetric calves Neurologic: AAOx3 Psychiatric: interacting appropriately, not anxious Lymph, Heme, Immunologic: no cervical LAD ICD10 Worksheet Patient Problems: Problems Problem Status Onset Back pain Acute Spinal stenosis Acute
[2017-05-16] MEDS: WARFARIN SODIUM 5 MG TAB PO SCH (21:36)
[2017-05-16] MEDS: PATCH REMOVAL 1 EA PATCH TD SCH (21:39)
[2017-05-16] MEDS: CYCLOBENZAPRINE 10 MG TAB PO PRN (22:46)
[2017-05-17] MEDS: LEVOTHYROXINE 150 MCG TAB PO SCH (04:58)
[2017-05-17 05:36] LABS: INR 2.62 (0.83-1.16); PROTIME(PATIENT) 28.3 SEC (12.0-15.0)
[2017-05-17] MEDS: CYCLOBENZAPRINE 10 MG TAB PO PRN (06:42)
[2017-05-17] MEDS: predniSONE 20 MG TAB PO SCH (08:15)
[2017-05-17] MEDS: LIDOCAINE 5% 1 EA PATCH TD SCH (08:15)
[2017-05-17] MEDS: ATORVASTATIN CALCIUM 20 MG TAB PO SCH (08:15)
[2017-05-17 08:54] VITALS: BP 113/71; PULSE 78; RESP 16; TEMP 97.6; O2SAT 91
--- NOTE | 2017-05-17 10:09 | PDIAF ---
- Diagnosis Diagnosis: spinal stenosis Code Status: Full Code - Medication Management Discharge Medications: Medications to Continue on Transfer Atorvastatin Calcium [Lipitor 20 mg (*)] 20 mg PO DAILY 05/13/17 [Last Taken Unknown] Cyclobenzaprine [Flexeril 10 MG (*)] 10 mg PO TID PRN 05/13/17 [Last Taken 05/13 17:00] Levothyroxine Sodium 150 mcg PO DAILY 05/13/17 [Last Taken 05/12/17] Warfarin Sodium [Coumadin] 5 mg PO HS 05/13/17 [Last Taken 05/12/17] oxyCODONE IR [Oxycodone Ir (*)] 5 - 10 mg PO Q4H PRN 05/13/17 [Last Taken Unknown] Acetaminophen [Tylenol 325mg (*)] 650 mg PO Q4HRS PRN #0 tab 05/17/17 [Last Taken Unknown] Lidocaine 5% [Lidoderm 5% Patch (*)] 1 ea TD DAILY patch 05/17/17 [Last Taken Unknown] Discharge Medications: Refer to the Discharge Home Medication list for PRN reason. - Orders Services needed: Registered Nurse, Physical Therapy, Occupational Therapy Diet Recommendation: no restrictions on diet Diet Texture: Regular Texture Diet - Labs/Radiology PT/INR Date: 05/18/17 (to titrate warfarin therapy) - Follow Up Care Current Providers and Referrals: Patient,NotPresent [Unknown] - As per Instructions
--- NOTE | 2017-05-17 14:32 | GDS ---
[f rep st] DISCHARGE SUMMARY DISCHARGE DIAGNOSIS: Includes: 1. Severe lumbar stenosis with lumbar radiculopathy. 2. Acute hypoxic respiratory failure secondary to atelectasis. 3. Atrial fibrillation on chronic anticoagulation. 4. Hypothyroidism. HISTORY OF PRESENT ILLNESS: An 81-year-old female who presents with persistent pain and inability t o ambulate with known severe lumbar stenosis. For details of patient's initial presentation, please see the History and Physical dated 05/14/2017. CONSULTATIVE SERVICES: None. PROCEDURES: None. HOSPITAL COURSE: By issue: 1. Severe lumbar stenosis with lumbar radiculopathy. The patient was readmitted to the hospital an d initiated on appropriate pain control using Lidoderm patches, short burst of prednisone, Tylenol, and p.r.n. oxycodone, as well as p.r.n. Flexeril. Patient has had adequate pain control allowing he r ambulation with safety. We are recommending disposition to residential with ongoing physical therapy/rehabilitation. 2. Acute hypoxic respiratory failure. Patient had chest imaging on her previous hospitalization, w hich was normal. Sitting in interview with this patient on the day of disposition, if you turn the patient to room air and have her breathe deeply she is able to bring her saturations to the mid 90s off oxygen. When she settles back into her normal respiratory pattern on intermittent pain medicati ons, she requires 1-2 L of oxygen. I have encouraged her to continue using her incentive spirometer upon return to residential. My hope is with the weaning of pain medications she will also be a ble to wean off oxygen. 3. Atrial fibrillation. Patient has remained rate controlled off rate control medications, on house manager dwayne anticoagulation. INR on the day of disposition is 2.6. I have requested INR check in the [facility] and ongoing titration of her outpatient warfarin dosing. MEDICATIONS AT THE TIME OF DISPOSITION: Please reference med rec printed 05/17/2017. PENDING STUDIES PENDING AT TIME OF DICTATION: None. FOLLOWUP: Includes with the residential facility, physicians, and physical therapy staff. I spent greater than 30 minutes in the planning and coordination of this discharge. /[id number]/MODL
== END 2017-05-17 13:34 | DRG 551 ==
LOC: EDUNIT# → F1N 18:27 → OBSVTOIN 05-14 15:02
PROVIDERS: ADMIT Internal Medicine; ATTEND Internal Medicine
DX: M48.06 Spinal stenosis, lumbar region (principal); J96.01 Acute respiratory failure with hypoxia; J98.11 Atelectasis; M54.16 Radiculopathy, lumbar region; I48.91 Unspecified atrial fibrillation; Z79.01 Long term (current) use of anticoagulants; E03.9 Hypothyroidism, unspecified; Z87.891 Personal history of nicotine dependence
CPT/HCPCS: 97116-GP; 97161-GP; 97165-GO; 97530-GO; 97530-GP; 97535-GO; G0378; G8978-GP-CK; G8979-GP-CI; G8987-GO-CI; G8988-GO-CI

== ENCOUNTER → 2018-05-26 | Outpatient (CLI) | payer OTHER, MEDICARE | LOC: FIMAGING 10:00 | PROVIDERS: ATTEND Physician Assistant Medical | DX: M50.30 Other cervical disc degeneration, unspecified cervical region (principal); M47.892 Other spondylosis, cervical region; M99.71 Connective tissue and disc stenosis of intervertebral foramina of cervical region ==

== ENCOUNTER → 2019-03-30 | Outpatient (CLI) | payer OTHER, MEDICARE | LOC: BMCIMAGING 10:20 | PROVIDERS: ATTEND Internal Medicine Geriatric Medicine | DX: J44.9 Chronic obstructive pulmonary disease, unspecified (principal) ==

== ENCOUNTER 2019-04-13 05:21 | Inpatient (IN) | payer OTHER, MEDICARE ==
[2019-04-13] MEDS ORDERED: ONDANSETRON 4 MG/2 ML VIAL IVP ONE (05:27)
[2019-04-13] MEDS ORDERED: NS 1,000 ML IV ONE ×2 (05:27→06:11)
--- NOTE | 2019-04-13 05:32 | EDPHY ---
H & P Time Seen by Provider: 04/13/19 05:30 HPI/ROS: HPI CHIEF COMPLAINT: Nausea vomiting diarrhea. HISTORY OF PRESENT ILLNESS: Patient is a 83-year-old female she resides at [facility], she presents emergency room by ambulance for nausea vomiting diarrhea. She reports to me that she started having vomiting around 7:00 p.m. Last night multiple episodes. Nonbloody. She also reports she had multiple episodes of watery diarrhea nonbloody. She denies any chest pain or shortness of breath denies any abdominal pain. She does states she feels globally generalized weak. States she vomited a most the night and had multiple episodes of diarrhea she states she feels very dehydrated. Patient has a history of CVA with right-sided residual weakness. She typically uses a cane as well as a scooter at home. Past Medical History: Significant medical history for lumbar radiculopathy lumbar stenosis, hypoxia, AFib on Coumadin, CVA Past Surgical History: No recent surgery Social History: Resides at [facility]. Family History: Noncontributory ROS REVIEW OF SYSTEMS: 10 Systems were reviewed and negative with the exception of the elements mentioned in the history of present illness. Exam Constitutional dry on exam, dehydrated elderly, nontoxic triage nursing summary reviewed, vital signs reviewed, awake/alert. Eyes normal conjunctivae and sclera, EOMI, PERRLA. HENT normal inspection, atraumatic, dry mucus membranes, no epistaxis, neck supple/ no meningismus, no raccoon eyes. Respiratory clear to auscultation bilaterally, normal breath sounds, no respiratory distress, no wheezing. Cardiovascular rate normal, regular rhythm, no murmur, no edema, distal pulses normal. Gastrointestinal soft, non-tender, no rebound, no guarding, normal bowel sounds, no distension, no pulsatile mass. Genitourinary no CVA tenderness. Musculoskeletal residual right-sided leg weakness. no midline vertebral tenderness, full range of motion, no calf swelling, no tenderness of extremities , no meningismus, good pulses, neurovascularly intact. Skin pink, warm, & dry, no rash, skin atraumatic. Neurologic awake, alert and oriented x 3, AAOx3, moves all extremities however right leg residually weakness. motor intact, sensory intact, CN II-XII intact, normal cerebellar, normal vision, normal speech. Psychiatric normal mood/affect. Heme/Lymph/Immune no lymphadenopathy. Differential Diagnosis: Includes but is not limited to in a particular order dehydration, electrolyte disturbance, pneumonia, acute viral illness, acute diarrheal process, gastroenteritis Medical Decision Making: Plan for this patient IV establishment IV fluid bolus , basic labs, IV Zofran for nausea, GI stool studies, check electrolytes, gentle IV fluids, chest x-ray, re-evaluate. Re-evaluation: Troponin 0.01. Patient noted to be hypoxic 84 to 85%. Given this plan for CT angiogram of the chest rule out PE and pneumonia. However patient denies any cough or shortness of breath, denies any chest pain. Her main complaint is nausea vomiting and diarrhea. Labs reviewed she is dehydrated. She has received 1 L fluid so far. A 2nd L will be given. Plan for hospital admission. EKG interpretation by me on record in [facility] system. Impression time of EKG 6:38 a.m., sinus rhythm rate of 89, no signs of acute ischemia or cardiac arrhythmia. Patient noted to be hypoxic 84% upon arrival she is currently on OxyMask at 5 L. No distress. Denies shortness of breath or chest pain. Plan for admission the hospital for dehydration, acute nausea vomiting and diarrhea, and hypoxia. I spoke with the hospitalist service Dr. Tomas Agrees to admit. Plan for admission. Gentle IV fluids. I have ordered stool studies. She is dry on exam. Patient agrees for admission. CT angiogram of the chest obtained for hypoxia and cough [id number] apical central lobar emphysema, hilar lymphadenopathy. No dense pneumonia, no PE. Faxed me by direct Radiology 6:52 a.m.. 0701AM: Patient will be admitted. Dr. Tomas Accepts admission. Source: Patient, EMS - Medical/Surgical History Hx Asthma: No Hx Chronic Respiratory Disease: No Hx Diabetes: No Hx Cardiac Disease: No Hx Renal Disease: No Hx Cirrhosis: No Hx Alcoholism: No Hx HIV/AIDS: No Hx Splenectomy or Spleen Trauma: No Other PMH: CVA, arthritis, low back pain, afib, hypothyroidism - Social History Smoking Status: Former smoker Constitutional: Initial Vital Signs Temperature (C) 36.7 C 04/13/19 05:26 Heart Rate 105 H 04/13/19 05:26 Respiratory Rate 16 04/13/19 05:26 Blood Pressure 107/72 04/13/19 05:26 O2 Sat (%) 92 04/13/19 05:26 O2 Delivery Mode Nasal Cannula O2 (L/minute) 5 Allergies/Adverse Reactions: No Known Allergies Allergy (Verified 04/13/19 08:03) Home Medications: Medication Instructions Recorded Levothyroxine Sodium 150 mcg PO DAILY 05/13/17 Acetaminophen [Tylenol 325mg (*)] 650 mg PO Q4HRS PRN #0 tab 05/17/17 Atorvastatin Calcium [Lipitor 10 10 mg PO DAILY 04/13/19 mg (*)] Rivaroxaban [Xarelto 15mg (*)] 15 mg PO HS 04/13/19 Medical Decision Making - Data Points Laboratory Results: Laboratory Results 04/14/19 05:08 04/14/19 05:08 Medications Given: Atorvastatin Calcium (Lipitor) 10 mg PO DAILY GRETTA Stop: 10/11/19 08:59 Last Admin: 04/15/19 08:11 Dose: 10 mg Levothyroxine Sodium (Synthroid) 150 mcg PO DAILY@0600 GRETTA Stop: 10/11/19 08:59 Last Admin: 04/15/19 05:29 Dose: 150 mcg Rivaroxaban (Xarelto) 15 mg PO HS GRETTA Stop: 10/10/19 20:59 Last Admin: 04/15/19 21:00 Dose: 15 mg Discontinued Medications Sodium Chloride (Ns) 1,000 mls @ 0 mls/hr IV EDNOW ONE; Wide Open PRN Reason: Protocol Stop: 04/13/19 05:28 Last Admin: 04/13/19 05:34 Dose: 1,000 mls Sodium Chloride (Ns) 1,000 mls @ 0 mls/hr IV ONCE ONE PRN Reason: Wide Open Stop: 04/13/19 06:12 Last Admin: 04/13/19 06:39 Dose: 1,000 mls Magnesium Sulfate (Magnesium Sulf 2 Gm (Premix)) 50 mls @ 50 mls/hr IV ONCE ONE Stop: 04/14/19 12:15 Last Admin: 04/14/19 12:34 Dose: 50 mls Potassium Chloride/Sodium Chloride (Ns W/ 20 Kcl/L) 1,000 mls @ 75 mls/hr IV CONT GRETTA Stop: 04/15/19 00:34 Last Admin: 04/14/19 12:53 Dose: 1,000 mls Magnesium Sulfate/Dextrose (Magnesium Sulf 1 Gm (Premix)) 100 mls @ 100 mls/hr IV ONCE ONE Stop: 04/15/19 08:59 Last Admin: 04/15/19 09:06 Dose: 100 mls Levothyroxine Sodium (Synthroid) 150 mcg PO DAILY GRETTA Stop: 10/11/19 08:59 Last Admin: 04/14/19 08:56 Dose: 150 mcg Ondansetron HCl (Zofran) 4 mg IVP EDNOW ONE Stop: 04/13/19 05:28 Last Admin: 04/13/19 05:38 Dose: 4 mg Point of Care Test Results: Chemistry 04/13/19 06:12 POC Troponin I 0.01 ng/mL ng/mL (0.00-0.08) Departure - Departure Disposition: [facility] Inpatient Acute Clinical Impression: Dehydration, Generalized weakness Condition: Fair
[2019-04-13 05:35] LABS: PLATELET COUNT 200 10^3/uL (150-400)
[2019-04-13 05:45] LABS: INR 1.01 (0.83-1.16); PROTIME(PATIENT) 12.9 SEC (12.0-15.0)
[2019-04-13] MEDS ORDERED: IOPAMIDOL (ISOVUE 370) 100 ML BTL IV ONE (06:15)
[2019-04-13] MEDS ORDERED: ONDANSETRON DISINTEGRATING 4 MG TAB PO PRN (06:52)
[2019-04-13] MEDS ORDERED: ONDANSETRON 4 MG/2 ML VIAL IVP PRN (06:52)
[2019-04-13] MEDS ORDERED: PROMETHAZINE HCL 25 MG/ML INJ IVP PRN (06:52)
[2019-04-13] MEDS ORDERED: ACETAMINOPHEN 325 MG TAB PO PRN (06:52)
[2019-04-13] MEDS ORDERED: LR 1,000 ML IV SCH (07:00)
--- NOTE | 2019-04-13 07:14 | PDGENHP ---
History and Physical - Chief Complaint Vomiting, diarrhea - History of Present Illness 83 yo F w/ hx of AF, CVA, CKD, and hypothyroid presents with vomiting and diarrhea. The patient lives at [facility]. She was in usual state of health until last evening when she developed vomiting and diarrhea. The patient tells me she had close to 10 loose, water BM's. She denies blood. She feels better after fluids and anti-emetics. She denies recent antibiotics. She denies known sick contacts but tells me lots of people get hospitalized from her facility, including her neighbor across the [place] recently. She did not eat anything unusual for dinner. Of note, she was noted to be hypoxic in the ED. She is currently requiring 4 L to maintain O2 sats. She denies dyspnea, cough, or feeling short of breath. A CTPE was performed, which demonstrates no PE but evidence of emphysema. She smoked tobacco for a long time but quit about 15 years ago. She does not have a formal COPD diagnosis. Case discussed with ED physician Dr. Barajas; records reviewed and summarized above. History Information - Allergies/Home Medication List Allergies/Adverse Reactions: No Known Allergies Allergy (Unverified 02/28/16 15:27) Home Medications: Atorvastatin Calcium [Lipitor 20 mg (*)] 20 mg PO DAILY 05/13/17 [Last Taken Unknown] Cyclobenzaprine [Flexeril 10 MG (*)] 10 mg PO TID PRN 05/13/17 [Last Taken 05/13 17:00] Levothyroxine Sodium 150 mcg PO DAILY 05/13/17 [Last Taken 05/12/17] oxyCODONE IR [Oxycodone Ir (*)] 5 - 10 mg PO Q4H PRN 05/13/17 [Last Taken Unknown] Xarelto 15mg (*) 04/13/19 [Last Taken Unknown] I have personally reviewed and updated: family history, medical history - Past Medical History atrial fibrillation, CVA Additional medical history: CKD, Stage III. Hypothyroid - Surgical History Additional surgical history: CEA - Family History Additional family history: Asked, denies - Social History Smoking Status: Former smoker Review of Systems Review of Systems: ROS: 10pt was reviewed & negative except for what was stated in HPI & below Physical Exam Physical Exam: Temp Pulse Resp BP Pulse Ox 36.6 C 88 16 130/66 H 95 04/13/19 06:49 04/13/19 06:49 04/13/19 06:49 04/13/19 06:49 04/13/19 06:49 Constitutional: no apparent distress, appears nourished Eyes: PERRL, EOMI Ears, Nose, Mouth, Throat: moist mucous membranes, no oral mucosal ulcers Cardiovascular: regular rate and rhythym, no murmur, rub, or gallop Respiratory: no respiratory distress, clear to auscultation Gastrointestinal: normoactive bowel sounds, soft, non-tender abdomen Skin: warm, normal color Musculoskeletal: full muscle strength, no muscle tenderness Neurologic: AAOx3, CN II-XII Intact Psychiatric: interacting appropriately, not anxious Lab Data & Imaging Review 04/13/19 05:10 04/13/19 05:10 WBC 13.53 10^3/uL (3.80-9.50) H 04/13/19 05:10 RBC 5.56 10^6/uL (4.18-5.33) H 04/13/19 05:10 Hgb 15.6 g/dL (12.6-16.3) 04/13/19 05:10 Hct 48.8 % (38.0-47.0) H 04/13/19 05:10 MCV 87.8 fL (81.5-99.8) 04/13/19 05:10 MCH 28.1 pg (27.9-34.1) 04/13/19 05:10 MCHC 32.0 g/dL (32.4-36.7) L 04/13/19 05:10 RDW 14.9 % (11.5-15.2) 04/13/19 05:10 Plt Count 200 10^3/uL (150-400) 04/13/19 05:10 MPV 11.9 fL (8.7-11.7) H 04/13/19 05:10 Neut % (Auto) 91.5 % (39.3-74.2) H 04/13/19 05:10 Lymph % (Auto) 4.4 % (15.0-45.0) L 04/13/19 05:10 Kendall % (Auto) 3.3 % (4.5-13.0) L 04/13/19 05:10 Eos % (Auto) 0.1 % (0.6-7.6) L 04/13/19 05:10 Baso % (Auto) 0.3 % (0.3-1.7) 04/13/19 05:10 Nucleat RBC Rel Count 0.0 % (0.0-0.2) 04/13/19 05:10 Absolute Neuts (auto) 12.37 10^3/uL (1.70-6.50) H 04/13/19 05:10 Absolute Lymphs (auto) 0.60 10^3/uL (1.00-3.00) L 04/13/19 05:10 Absolute Monos (auto) 0.44 10^3/uL (0.30-0.80) 04/13/19 05:10 Absolute Eos (auto) 0.02 10^3/uL (0.03-0.40) L 04/13/19 05:10 Absolute Basos (auto) 0.04 10^3/uL (0.02-0.10) 04/13/19 05:10 Absolute Nucleated RBC 0.00 10^3/uL (0-0.01) 04/13/19 05:10 Immature Gran % 0.4 % (0.0-1.1) 04/13/19 05:10 Immature Gran # 0.06 10^3/uL (0.00-0.10) 04/13/19 05:10 PT 12.9 SEC (12.0-15.0) 04/13/19 05:10 INR 1.01 (0.83-1.16) 04/13/19 05:10 APTT 26.1 SEC (23.0-38.0) 04/13/19 05:10 Sodium 141 mEq/L (135-145) 04/13/19 05:10 Potassium 4.5 mEq/L (3.5-5.2) 04/13/19 05:10 Chloride 107 mEq/L (97-110) 04/13/19 05:10 Carbon Dioxide 19 mEq/l (22-31) L 04/13/19 05:10 Anion Gap 15 mEq/L (6-14) H 04/13/19 05:10 BUN 28 mg/dL (7-23) H 04/13/19 05:10 Creatinine 1.5 mg/dL (0.6-1.0) H 04/13/19 05:10 Estimated GFR 33 04/13/19 05:10 Glucose 173 mg/dL (70-100) H 04/13/19 05:10 Calcium 9.4 mg/dL (8.5-10.4) 04/13/19 05:10 Total Bilirubin 0.9 mg/dL (0.1-1.4) 04/13/19 05:10 Conjugated Bilirubin 0.0 mg/dL (0.0-0.5) 04/13/19 05:10 Unconjugated Bilirubin 0.9 mg/dL (0.0-1.1) 04/13/19 05:10 AST 20 IU/L (14-46) 04/13/19 05:10 ALT 28 IU/L (9-52) 04/13/19 05:10 Alkaline Phosphatase 139 IU/L (38-126) H 04/13/19 05:10 POC Troponin I 0.01 ng/mL (0.00-0.08) 04/13/19 06:12 Total Protein 7.7 g/dL (6.3-8.2) 04/13/19 05:10 Albumin 4.4 g/dL (3.5-5.0) 04/13/19 05:10 Lipase 71 IU/L (23-300) 04/13/19 05:10 Visualized and Interpreted EKG results: Yes EKG Interpretation: Positive for: normal sinsus rhythm Assessment & Plan Assessment: 83 yo F w/ hx of AF, CVA, CKD, and hypothyroid presents with vomiting and diarrhea; also found to be hypoxic. Plan: 1. Vomiting, diarrhea - Symptoms consistent with gastroenteritis vs. food poisoning. She denies abdominal pain or BRBPR/melena. She has had no recent antibiotics but may have been exposed to sick contacts at her living facility. - Admit for observation - Clear liquids, mIVF, ADAT - Anti-emetics PRN - GI PCR ordered 2. Hypoxia - Unclear etiology; patient is essentially asymptomatic from this. She is currently requiring 4 L/min O2 to maintain adequate O2 sats. CTPE negative for PE but does show emphysema and atelectasis, which may be contributing. - Continue O2 PRN - Incentive spirometry ordered - Will check BNP - Consider TTE if hypoxia persists despite conservative measures 3. CKD, Stage III - Serum creatinine near past baselines. - Avoid nephrotoxic agents, renally dose medications 4. AF - In NSR on admission. - Continue Xarelto 5. Hx CVA - Suffered in 2000. - Continue statin 6. Hypothyroid - Continue LTX. Diet - Clears, mIVF, ADAT Code - Full Ppx - Xarelto Dispo - Admit under observation status
--- NOTE | 2019-04-13 13:33 | HOSPPROG ---
Hospitalist Progress Note Assessment/Plan: 83 yo F w/ hx of AF, CVA, CKD, and hypothyroid presents with vomiting and diarrhea; also found to be hypoxic. 1. Vomiting, diarrhea - Symptoms consistent with gastroenteritis vs. food poisoning. She denies abdominal pain or BRBPR/melena. She has had no recent antibiotics but may have been exposed to sick contacts at her living facility. - advance diet - Anti-emetics PRN - GI PCR ordered, pending 2. Hypoxia - Unclear etiology; patient is essentially asymptomatic from this. CTPE negative for PE but does show emphysema and atelectasis, which may be contributing. - Continue O2 PRN - Incentive spirometry ordered 3. CKD, Stage III - Serum creatinine near past baselines. - Avoid nephrotoxic agents, renally dose medications -Stop IVF, has already received a significant amount 4. AF - In NSR on admission. - Continue Xarelto 5. Hx CVA - Suffered in 2000. - Continue statin 6. Hypothyroid - Continue LTX. Diet - regular Code - Full Ppx - Xarelto Dispo - cont observation status Subjective: starting to feel better. still with diarrhea. no nausea or vomiting. afebrile. no SOB. no cp. no cough Objective: Vital Signs Temp Pulse Resp BP Pulse Ox 36.6 C 84 16 91/57 L 91 L 04/13/19 11:45 04/13/19 11:45 04/13/19 11:45 04/13/19 11:45 04/13/19 11:45 04/12/19 04/13/19 04/14/19 05:59 05:59 05:59 Intake Total 2500 Balance 2500 PT 12.9 SEC (12.0-15.0) 04/13/19 05:10 INR 1.01 (0.83-1.16) 04/13/19 05:10 - Physical Exam Constitutional: no apparent distress Eyes: PERRL, EOMI Ears, Nose, Mouth, Throat: moist mucous membranes, hearing normal Cardiovascular: regular rate and rhythym, No edema Respiratory: no respiratory distress, no rales or rhonchi, clear to auscultation Gastrointestinal: normoactive bowel sounds, soft, non-tender abdomen Skin: warm Neurologic: AAOx3 Psychiatric: interacting appropriately, not anxious, not encephalopathic Lymph, Heme, Immunologic: No petechiae ICD10 Worksheet Patient Problems: Problems Problem Status Onset Dehydration Acute Generalized weakness Acute Back pain Acute Spinal stenosis Acute
[2019-04-13] MEDS: RIVAROXABAN 15 MG TAB PO SCH (21:01)
[2019-04-14 05:27] LABS: PLATELET COUNT 144 10^3/uL (150-400)
[2019-04-14] MEDS: ATORVASTATIN CALCIUM 10 MG TAB PO SCH (08:56)
[2019-04-14] MEDS ORDERED: LEVOTHYROXINE 150 MCG TAB PO SCH (09:00)
[2019-04-14] MEDS ORDERED: NS W/ 20 KCl/L 1,000 ML IV SCH (11:15)
[2019-04-14] MEDS ORDERED: PROTOCOL POTASSIUM 1 DOSE MISC PRN (11:16)
[2019-04-14] MEDS ORDERED: PROTOCOL MAGNESIUM 1 DOSE IV PRN (11:16)
[2019-04-14] MEDS ORDERED: MAGNESIUM SULF 2 GM/WATER 50 ML IV ONE (11:16)
--- NOTE | 2019-04-14 11:21 | HOSPPROG ---
Hospitalist Progress Note Assessment/Plan: 83 yo F w/ hx of AF, CVA, CKD, and hypothyroid presents with vomiting and diarrhea; also found to be hypoxic. 1. Vomiting, diarrhea, dehydration - Symptoms consistent with gastroenteritis vs. food poisoning. She denies abdominal pain or BRBPR/melena. She has had no recent antibiotics but may have been exposed to sick contacts at her living facility. - Norovirus per GI PCR - Anti-emetics PRN - still with significant diarrhea which is causing Hypotension. Will provide additional IVF today 2. Hypoxia - Unclear etiology; patient is essentially asymptomatic from this. CTPE negative for PE but does show emphysema and atelectasis, which may be contributing. - Continue O2 PRN - Incentive spirometry ordered -Her exam is reassuring. She is not coughing. she does not feel SOB. Will obtain an Echo given hypoxemia and hypotension, but etiology remains unclear. IS has been provided 3. CKD, Stage III - Serum creatinine near past baselines. - Avoid nephrotoxic agents, renally dose medications -essentially at baseine 4. AF - In NSR on admission. - Continue Xarelto 5. Hx CVA - Suffered in 2000. - Continue statin 6. Hypothyroid - Continue LTX. 7. Leukocytosis, resolved Diet - regular Code - Full Ppx - Xarelto Dispo - change to inpatient. Subjective: no cp or sob. no n/v. Still with lots of diarrhea. Still with hypoxemia, but not symptomatic Objective: Vital Signs Temp Pulse Resp BP Pulse Ox 36.7 C 67 18 152/92 H 89 L 04/14/19 11:12 04/14/19 11:12 04/14/19 11:12 04/14/19 11:12 04/14/19 11:12 Microbiology 04/13/19 11:25 Gastrointestinal Tract Panel (PCR) - Final Stool Norovirus Gi/Gii Laboratory Results 04/14/19 05:08 04/14/19 05:08 04/13/19 04/14/19 04/15/19 05:59 05:59 05:59 Intake Total 2500 Balance 2500 PT 12.9 SEC (12.0-15.0) 04/13/19 05:10 INR 1.01 (0.83-1.16) 04/13/19 05:10 - Physical Exam Constitutional: no apparent distress Eyes: PERRL, EOMI Ears, Nose, Mouth, Throat: moist mucous membranes, hearing normal Cardiovascular: regular rate and rhythym Respiratory: no respiratory distress, no rales or rhonchi, clear to auscultation Gastrointestinal: normoactive bowel sounds Skin: warm Neurologic: AAOx3 Psychiatric: interacting appropriately, not anxious, not encephalopathic Lymph, Heme, Immunologic: No petechiae ICD10 Worksheet Patient Problems: Problems Problem Status Onset Dehydration Acute Generalized weakness Acute Back pain Acute Spinal stenosis Acute
--- NOTE | 2019-04-14 15:09 | ASMTCMCOM ---
CM Note CM Note Notes: CM reviewed pt chart and met with RN. Pt is 83- year old female who came in for vomiting and diarrhea from [facility]. RN reports that pt was diagnoses Noro Virus. CM spoke to [facility] to let them know about the virus. Pt was sleeping when CM attempted to meet her. CM to follow. Date Signed: 04/14/2019 03:08 PM Electronically Signed By:Josie Camp
--- NOTE | 2019-04-14 16:11 | ASMTCMCOM ---
CM Note CM Note Notes: CM spoke with pt in the room. PT was unable to eval pt today, but pt stated she felt she would need to discharge to the [facility] ([facility]) if she discharged tomorrow, but may feel well enough for independent living on Tuesday. Referral sent to [facility], as pt is a resident there already. CM to follow. D/C Plan: TBD [facility] v [facility] Date Signed: 04/14/2019 04:10 PM Electronically Signed By:Palak Rodrigez. URSZULA
[2019-04-14] MEDS: RIVAROXABAN 15 MG TAB PO SCH (21:01)
[2019-04-15] MEDS: LEVOTHYROXINE 150 MCG TAB PO SCH (05:29)
[2019-04-15] MEDS ORDERED: MAGNESIUM SULF 1 GM/DEXTROSE 100 ML IV ONE (08:00)
[2019-04-15] MEDS: ATORVASTATIN CALCIUM 10 MG TAB PO SCH (08:11)
--- NOTE | 2019-04-15 10:30 | ECHO ---
[email or web address] [address] Main: [phone] Echocardiography Examination Transthoracic Name: MARSHA NAVARRO MR#: [id number] Study Date: 04/14/2019 Study Time: 04:59 PM Date of : 1935 Age: 83 year(s) Height: 170.2 cm (67 in.) Weight: 72.58 kg (160 lb.) BSA: 1.84 m2 Gender: Female Examination: Echo Contrast: Image Quality: Adequate Rhythm: Heart Rate: BP: / Indication: chf? Procedure Staff Referring Physician: Dry Cleaning Manager: Rica Bowen RDCS Reading Physician: Alin Pham MD Requesting Provider: Ordering Physician: Zia Yee Indication: chf? Measurements Chambers AV/MV Label Value Normal Value Label Value Normal Value LVOTd 2 cm (1.8cm - 2cm) AV PGmax 11 mmHg LVOT VTI 22.2 cm (18cm - 22cm) AV PGmean 7 mmHg LVDd, 2D 3.3 cm (3.9cm - 5.3cm) AV Vmax 1.62 m/s LVDs, 2D 2.4 cm (2.1cm - 4cm) DILMA (VTI) 1.9 cm2 IVSd, 2D 1 cm (0.6cm - 1.1cm) MV E Vmax 0.84 m/s LVPWd, 2D 1 cm MV A Vmax 1.12 m/s LVEF, BP 65 % (55% - 70%) MV E/A 0.75 LVEF, 2D 56 % (54% - 74%) MV E/E' lateral 9.7 LVOT PGmean 2 mmHg MV E/E' septal 12.5 (0.45 - 1.25) LVOT Vmean 0.72 m/s MV DT 261 ms RVDd, 2D 3 cm (1.9cm - 3.8cm) MV E' septal 0.07 m/s LA Volume, BP 45 ml (22ml - 52ml) MV PHT 0.07 s LADs, 2D 3.6 cm (2.7cm - 3.8cm) MVA PHT 3 cm2 LAESV index, BP 24.5 ml/m2 MV E' lateral 0.09 m/s RA Area 13 cm2 MV E/E' mean 10.5 Additional Vessels MV PHT 73 ms Label Value Normal Value MV E' mean 0.08 m/s AoAsc 2.5 cm TV/PV AoRoot, 2D 2.4 cm (1.4cm - 2.6cm) Label Value Normal Value Patient: MARSHA NAVARRO Study Date: 04/14/2019 Page 1 of 3 04:59 PM IVC 1.7 cm (1.2cm - 2.3cm) RA Pressure 5 mmHg RVSP 37 mmHg TR Pmax 32 mmHg TR Vmax 2.82 m/s PV PGmax 3 mmHg PV Vmax, Caliper 0.8 m/s (0.6m/s - 0.9m/s) Conclusions Normal LV systolic function, ejection fraction 65%. Mild mitral regurgitation. Mild tricuspid regurgitation. Estimated RVSP 37 mm of mercury, upper limits of normal. Findings Left Ventricle: Left ventricle is normal in size. Normal global systolic left ventricular function. The ejection fraction, measured by Simpsons method, is 65 %. EF range is estimated at 60 % - 65 %. Left ventricle wall thickness is normal. There are no regional wall motion abnormalities. Diastolic Dysfunction is indeterminate. No LV hypertrophy. Right Ventricle: Normal size right ventricle. Right ventricular systolic function is normal. Left Atrium: The left atrium is normal in size. Right Atrium: The right atrium is normal in size. Mitral Valve: Mitral valve appears structurally normal. Mild mitral regurgitation. No mitral valve stenosis. There is mild mitral annular calcification. Aortic Valve: Aortic leaflets are structurally normal. No significant aortic valve regurgitation. There is no aortic stenosis. Aortic leaflets exhibit mild calcification. Tricuspid Valve: Tricuspid valve leaflets are structurally normal. Mild tricuspid regurgitation. No tricuspid valve stenosis. Right Ventricular systolic pressure is measured at 37 mmHg. Pulmonary artery pressure normal. Pulmonic Valve: Pulmonic leaflets are structurally normal. No significant pulmonic valve regurgitation is evident. Aorta: The aortic root size in 2D measures 2.4 cm. The ascending aorta measures 2.5 cm. Aorta Measurements AoRoot, 2D is 2.4 cm. IVC: The inferior vena cava is normal in size. Pericardium: A pericardial fat pad is present. No pericardial effusion. No pleural effusion present. Exam Details Procedure Ordered: Echo Procedure Status: Routine study Image Quality: Adequate Facility Location: Bedside Patient: MARSHA NAVARRO Study Date: 04/14/2019 Page 2 of 3 04:59 PM (No Signature Object) Patient: MARSHA NAVARRO Study Date: 04/14/2019 Page 3 of 3 04:59 PM [id number]
[2019-04-15] MEDS ORDERED: IPRATROPIUM/ALBUTEROL 3 ML DEYVIAL IH PRN (10:38)
--- NOTE | 2019-04-15 18:36 | HOSPPROG ---
Hospitalist Progress Note Assessment/Plan: 1. + norovirus gastroenteritis -on contact precautions -diet as tolerated -electrolytes/hydration status OK/stable 2. Hypoxia - emphysema per report and CXR, no O2 at baseline per her report -repeat CXR with possible new LLL PNA (but had CT scan at admission, same O2 requirement and no PNA) -denies worsening cough (has a mild cough from construction at SNF), no fevers/congestion -will monitor clinically, no indication for ABX at this time -echo revwd -nebs ordered 3. CKD, Stage III - stable - Avoid nephrotoxic agents, renally dose medications 4. AF - In NSR on admission - Continue Xarelto 5. Hx CVA - Suffered in 2000 - Continue statin 6. Hypothyroid, TSH in good range 02/2019 -home dose replacement 7. Leukocytosis, resolved Diet - regular Code - Full DVT prophy - Xarelto Dispo- likely > 2 mdnts as still having significant diarrhea/risk dehydration PCP- Dr graham, and just started seeing MD at [facility] [place] also Subjective: Denies abd pain, N/V. Less stools today, but still frequent/ bothersome. No CP/SOB. Was concerned about her lungs/lack of cxr as outpt so started seeing a new MD at [facility] [place] recently. Objective: Vital Signs Temp Pulse Resp BP Pulse Ox 97.4 F 70 15 124/44 H 94 04/15/19 16:00 04/15/19 17:07 04/15/19 17:07 04/15/19 16:00 04/15/19 17:07 Laboratory Results 04/14/19 05:08 04/15/19 05:00 04/14/19 04/15/19 04/16/19 11:59 11:59 11:59 Intake Total 400 Output Total 250 200 Balance 150 -200 PT 12.9 SEC (12.0-15.0) 04/13/19 05:10 INR 1.01 (0.83-1.16) 04/13/19 05:10 - Time Spent With Patient Time Spent with Patient: greater than 35 minutes Time Spent with Patient: Greater than 35 minutes spent on this patients care, greater than 50% of time spent counseling, educating, and coordinating care regarding the above mentioned plan. - Pending Discharge Pending Discharge Within 24 Hours: No ICD10 Worksheet Patient Problems: Problems Problem Status Onset Dehydration Acute Generalized weakness Acute Back pain Acute Spinal stenosis Acute
[2019-04-15] MEDS: RIVAROXABAN 15 MG TAB PO SCH (21:00)
--- NOTE | 2019-04-15 22:32 | PDMN ---
Medical Necessity Medical necessity: Pt meets IP criteria as of 04/14/19 per MD and MCG MG-GAS ( Gastroenterology GRG); los > 2 mn for ongoing tx and management of norovirus with persistent diarrhea and hypotension as well as hypoxia; requiring IVF, O2 , contact precautions, serial labs, and PRN nebulizers. Hx CKD stage III, CVA, and hypothyroid.
[2019-04-16] MEDS: LEVOTHYROXINE 150 MCG TAB PO SCH (05:32)
[2019-04-16] MEDS: ATORVASTATIN CALCIUM 10 MG TAB PO SCH (09:43)
--- NOTE | 2019-04-16 12:04 | ASMTCMCOM ---
CM Note CM Note Notes: Spoke w/MD, pt is positive for Norvirus, she lives at [facility]. Per PT she will need SNF rehab, referral already sent, CM left for Tiffanie regarding Noro. Dc date uncertain, OSVALDO w/f. DC Plan: SNF/ [facility] Date Signed: 04/16/2019 12:03 PM Electronically Signed By:Jael Perez RN
--- NOTE | 2019-04-16 13:41 | HOSPPROG ---
Hospitalist Progress Note Assessment/Plan: 1. + norovirus gastroenteritis -on contact precautions -diet as tolerated -electrolytes/hydration status OK/stable -improving, likely discharge tomorrow if OK with [facility] and remains stable 2. Hypoxia - emphysema per report and CXR, no O2 at baseline per her report -repeat CXR with possible new LLL PNA (but had CT scan at admission, same O2 requirement and no PNA) -denies worsening cough (has a mild cough from construction at SNF), no fevers/congestion -will monitor clinically, no indication for ABX at this time -echo revwd -nebs -revwd with RN, will trial at lower O2 but use diff pulse ox monitor as concern that continuous probe not picking up will 3. CKD, Stage III - stable - Avoid nephrotoxic agents, renally dose medications 4. AF - In NSR on admission - Continue Xarelto 5. Hx CVA - Suffered in 2000 - Continue statin 6. Hypothyroid, TSH in good range 02/2019 -home dose replacement 7. Leukocytosis, resolved Diet - regular Code - Full DVT prophy - Xarelto Dispo-hopeful discharge tomorrow vs Wends if continuing to improve PCP- Dr Buckley, and just started seeing MD at [facility] also Subjective: Feeling better, no cough/SOB/CP. Much fewer BMs, no N/V. Eating OK. Objective: Vital Signs Temp Pulse Resp BP Pulse Ox 97.6 F 65 16 119/65 93 04/16/19 07:34 04/16/19 07:34 04/16/19 07:34 04/16/19 07:34 04/16/19 07:34 Laboratory Results 04/16/19 05:00 04/15/19 04/16/19 04/17/19 11:59 11:59 11:59 Intake Total 400 Output Total 250 200 Balance 150 -200 PT 12.9 SEC (12.0-15.0) 04/13/19 05:10 INR 1.01 (0.83-1.16) 04/13/19 05:10 - Physical Exam Constitutional: no apparent distress, appears nourished, not in pain Eyes: anicteric sclera Ears, Nose, Mouth, Throat: moist mucous membranes, hearing normal Cardiovascular: regular rate and rhythym, No edema Respiratory: no respiratory distress, reduced air movement, other (faint crackles at B lower bases), No expiratory wheeze, No rhonchi Gastrointestinal: normoactive bowel sounds, soft, non-tender abdomen, No guarding, No rebound, No distension Skin: warm Psychiatric: interacting appropriately, not anxious, not encephalopathic ICD10 Worksheet Patient Problems: Problems Problem Status Onset Dehydration Acute Generalized weakness Acute Back pain Acute Spinal stenosis Acute
[2019-04-16] MEDS: RIVAROXABAN 15 MG TAB PO SCH (20:29)
[2019-04-17] MEDS: LEVOTHYROXINE 150 MCG TAB PO SCH (05:46)
--- NOTE | 2019-04-17 06:32 | CPEKG ---
Test Reason : OPEN Blood Pressure : / mmHG Vent. Rate : 089 BPM Atrial Rate : 089 BPM P-R Int : 192 ms QRS Dur : 072 ms QT Int : 354 ms P-R-T Axes : 040 -04 021 degrees QTc Int : 431 ms Sinus rhythm Low voltage, precordial leads Confirmed by Leo Haley ([id number]) on 04/17/2019 6:31:13 AM Referred By: Leo Haley Confirmed By:Leo Haley
[2019-04-17] MEDS: ATORVASTATIN CALCIUM 10 MG TAB PO SCH (09:44)
--- NOTE | 2019-04-17 12:58 | HOSPPROG ---
Hospitalist Progress Note Assessment/Plan: 83 yo F w AF, cva a/w diarrhea, norovirus + norovirus gastroenteritis -on contact precautions -diet as tolerated -electrolytes/hydration status OK/stable -improving, likely discharge tomorrow if OK with [facility] and remains stable 2. Hypoxia - emphysema per report and CXR, no O2 at baseline per her report i have reviewed/interpreted all chest imaging and while she does have emphysema, i do not believe she has active pneumonia 1. start combivent 2. continue 02 3. suspect she will need it at home 3. CKD, Stage III - stable - Avoid nephrotoxic agents, renally dose medications 4. AF - In NSR on admission - Continue Xarelto 5. Hx CVA - Suffered in 2000 - Continue statin 6. Hypothyroid, TSH in good range 02/2019 -home dose replacement 7. Leukocytosis, resolved Diet - regular Code - Full DVT prophy - Xarelto Dispo-hopeful discharge tomorrow vs Wends if continuing to improve PCP- Dr Buckley, and just started seeing MD at [facility] also Subjective: diarrhea improved. remains hypoxic and weak Objective: Vital Signs Temp Pulse Resp BP Pulse Ox 36.4 C 70 16 112/68 89 L 04/17/19 08:00 04/17/19 08:00 04/17/19 08:00 04/17/19 08:00 04/17/19 08:00 Laboratory Results 04/16/19 05:00 04/16/19 04/17/19 04/18/19 05:59 05:59 05:59 Intake Total 400 250 Output Total 200 Balance 200 250 PT 12.9 SEC (12.0-15.0) 04/13/19 05:10 INR 1.01 (0.83-1.16) 04/13/19 05:10 - Physical Exam Constitutional: no apparent distress, appears nourished Eyes: PERRL, anicteric sclera Ears, Nose, Mouth, Throat: moist mucous membranes, hearing normal Cardiovascular: regular rate and rhythym, no murmur, rub, or gallop Respiratory: no respiratory distress, no rales or rhonchi, No expiratory wheeze Gastrointestinal: normoactive bowel sounds, soft, non-tender abdomen Genitourinary: No kim in urethra Skin: warm, normal color Musculoskeletal: full muscle strength, no muscle tenderness Neurologic: AAOx3 Psychiatric: interacting appropriately Lymph, Heme, Immunologic: no cervical LAD ICD10 Worksheet Patient Problems: Problems Problem Status Onset Dehydration Acute Generalized weakness Acute Back pain Acute Spinal stenosis Acute
[2019-04-17] MEDS: IPRATROPIUM/ALBUTEROL 4GM MDI IH SCH ×2 (16:31→20:22)
[2019-04-17] MEDS: RIVAROXABAN 15 MG TAB PO SCH (20:02)
[2019-04-18] MEDS: LEVOTHYROXINE 150 MCG TAB PO SCH (05:19)
[2019-04-18] MEDS: IPRATROPIUM/ALBUTEROL 4GM MDI IH SCH ×2 (05:23→10:47)
[2019-04-18 07:19] VITALS: BP 109/73
[2019-04-18] MEDS: ATORVASTATIN CALCIUM 10 MG TAB PO SCH (08:28)
--- NOTE | 2019-04-18 10:18 | HOSPPROG ---
Hospitalist Progress Note Assessment/Plan: 83 yo F w AF, cva a/w diarrhea, norovirus + norovirus gastroenteritis -on contact precautions -diet as tolerated -electrolytes/hydration status OK/stable -improving, likely discharge tomorrow if OK with [facility] and remains stable 2. Hypoxia - emphysema per report and CXR, no O2 at baseline per her report i have reviewed/interpreted all chest imaging and while she does have emphysema, i do not believe she has active pneumonia 1. start combivent 2. continue 02 3. suspect she will need it at home 3. CKD, Stage III - stable - Avoid nephrotoxic agents, renally dose medications 4. AF - In NSR on admission - Continue Xarelto 5. Hx CVA - Suffered in 2000 - Continue statin 6. Hypothyroid, TSH in good range 02/2019 -home dose replacement 7. Leukocytosis, resolved Diet - regular Code - Full DVT prophy - Xarelto to [facility] today > 30 minutes Subjective: ready for dc Objective: Vital Signs Temp Pulse Resp BP Pulse Ox 36.5 C 77 18 109/73 92 04/18/19 07:15 04/18/19 08:18 04/18/19 08:18 04/18/19 07:15 04/18/19 08:18 Laboratory Results 04/16/19 05:00 04/17/19 04/18/19 04/19/19 05:59 05:59 05:59 Intake Total 250 200 500 Balance 250 200 500 PT 12.9 SEC (12.0-15.0) 04/13/19 05:10 INR 1.01 (0.83-1.16) 04/13/19 05:10 - Physical Exam Constitutional: no apparent distress, appears nourished Eyes: PERRL, anicteric sclera Ears, Nose, Mouth, Throat: moist mucous membranes, hearing normal Cardiovascular: regular rate and rhythym, no murmur, rub, or gallop Respiratory: no respiratory distress, no rales or rhonchi Gastrointestinal: normoactive bowel sounds, soft, non-tender abdomen Genitourinary: no bladder fullness, No kim in urethra Skin: warm, normal color Musculoskeletal: full muscle strength ICD10 Worksheet Patient Problems: Problems Problem Status Onset Dehydration Acute Generalized weakness Acute Back pain Acute Spinal stenosis Acute
--- NOTE | 2019-04-18 10:22 | PDIAF ---
- Diagnosis Diagnosis: norovirus Code Status: Full Code - Medication Management Discharge Medications: electronically signed and located in the Home Medication List. - Orders Isolation Type: Contact Isolation, Droplet Isolation Oxygen: 2L - Follow Up Care Current Providers and Referrals: Patient,NotPresent [Primary Care Provider] - As per Instructions
--- NOTE | 2019-04-18 10:43 | GDS ---
[f rep st] DISCHARGE SUMMARY DISCHARGE DIAGNOSES: 1. Norovirus. 2. Chronic hypoxemic respiratory failure secondary to chronic obstructive pulmonary disease. 3. Chronic kidney disease with acute kidney injury. 4. Atrial fibrillation on Xarelto. 5. History of cerebrovascular accident. 6. Hypothyroidism. Please see admission history and physical by Dr. Ramon Tomas. The patient presented with anemia and found to be hypoxic. CT showed no pulmonary embolism but showe d emphysema. She also had an echocardiogram, indeterminate diastolic dysfunction, normal systolic fu nction and no major valvular abnormalities. The patient had a chest x-ray performed on the which showed possible left lower lobe pneumonia. Patient did not have symptomatology such as fever, chills, cough, sputum, leukocytosis consistent wi th pneumonia. I reviewed the chest x-ray myself and did not feel this represented a left lower lobe pneumonia. She did not receive antibiotics. I did start her on ipratropium and albuterol inhaler. Her exam is consistent with somebody with COPD without exacerbation. She is discharged back to [facility]. Will spend some time in the care home facility prior to move back to her assisted living facility. /[id number]/MODL
--- NOTE | 2019-04-18 10:54 | ASMTLACE ---
LACE Length of stay for Answers: 4-6 days current admission Acuity / Level of Answers: Yes Care: Did the patient have an inpatient admission? Comorbidities - select Answers: Cerebrovascular disease all that apply (CVA, TIA, aneurysms, vasc ular dementia) Moderate or severe liver or renal disease Other Notes: AFib; Hypothyroid # of Emergency department Answers: 1-2 visits in the last 6 months Score: 14 Date Signed: 04/18/2019 10:53 AM Electronically Signed By:SOPHIE La
--- NOTE | 2019-04-18 10:59 | ASDISCHSUM ---
Discharge Information Plan Status:SNF Medically Cleared to Leave:04/18/2019 Discharge Date:04/18/2019 CM D/C Disposition: ADT D/C Disposition: Projected Discharge Date:04/18/2019 11:00 AM Transportation at D/C: Discharge Delay Reason: Follow-Up Date:04/18/2019 11:00 AM Discharge Slot: Final Diagnosis: Placement Information Referral Type:*Usp/SNF Referral ID:[id number] Provider Name:[facility] Address 1:[address] Phone Number: Address 2: Fax Number: [facility] Selection Factors: State:[place] Patient Contact Information Contact Name:ANALILIA Relationship:Daughter Address: City:[place] Alternate Phone: [facility]/Zip Code:[place] Email: Financial Information Financial Class:Medicare Primary Plan Desc:MEDICARE INPATIENT Primary Plan Number:[id number] Secondary Plan Desc:[employer]/MDR SUPPLEMENT Secondary Plan Number:[id number] Assessment Information LACE LACE Length of stay for Answers: 4-6 days current admission Acuity / Level of Answers: Yes Care: Did the patient have an inpatient admission? Comorbidities - select Answers: Cerebrovascular disease all that apply (CVA, TIA, aneurysms, vasc ular dementia) Moderate or severe liver or renal disease Other Notes: AFib; Hypothyroid # of Emergency department Answers: 1-2 visits in the last 6 months Score: 14 Date Signed: 04/18/2019 10:53 AM Electronically Signed By:SOPHIE La [facility] CM Progress Note CM Note CM Note Notes: CM reviewed pt chart and met with RN. Pt is 83- year old female who came in for vomiting and diarrhea from [facility]. RN reports that pt was diagnoses Noro Virus. CM spoke to [facility] to let them know about the virus. Pt was sleeping when CM attempted to meet her. CM to follow. Date Signed: 04/14/2019 03:08 PM Electronically Signed By:Josie Camp [facility] CM Progress Note CM Note CM Note Notes: CM spoke with pt in the room. PT was unable to eval pt today, but pt stated she felt she would need to discharge to the [facility] ([facility]) if she discharged tomorrow, but may feel well enough for independent living on Tuesday. Referral sent to [facility], as pt is a resident there already. CM to follow. D/C Plan: [facility] Date Signed: 04/14/2019 04:10 PM Electronically Signed By:Palak Rodrigez. [facility] Progress Note CM Note CM Note Notes: Spoke w/, pt is positive for Norvirus, she lives at [facility]. Per PT she will need SNF rehab, referral already sent, CM left for Tiffanie regarding Noro. Dc date uncertain, OSVALDO w/fDelicia DC Plan: [facility]/ [facility] Date Signed: 04/16/2019 12:03 PM Electronically Signed By:Jael Perez RN Case Management Discharge Plan Note Case Management Discharge Discharge Order Complete? Answers: Yes Patient to Obtain Answers: Other Notes: [facility] Medic[facility] Transportation Arranged Answers: Other Notes: [facility] w/c transport Transport will Pick (Date 04/18/2019 01:30 PM & Time) EMTALA Complete Answers: No Case Management Transport Answers: No Form Complete Faxed Final Orders Answers: Yes Agency/Facility Transfer Answers: Yes Report Printed & Faxed to Receiving Agency Family Notified Answers: No Discharge Comments Notes: Pts case discussed w/ Dr. Washburn. Pt is being d/c'd today to [facility]. CM spoke to Tiffanie at and they have a bed ready for her. CM set up transportation through [facility] per the pts request. Pt will need to go w/ o2 during her transport. Pt did not want CM to notify anybody. DC orders sent. URSZULA Judd will call to give report. CM available for changes. Plan: [facility] Date Signed: 04/18/2019 10:57 AM Electronically Signed By:SOPHIE La Intervention Information Intervention Type:*IM-Signed Date of Service:04/17/2019 09:42 AM Patient Type:Inpatient Staff Member:Cinthia Naidu Hours: Discipline: Severity: Comment:
== END 2019-04-18 13:46 | DRG 392 ==
LOC: EDUNIT# → F3E 08:08 → OBSVTOIN 04-14 13:24
PROVIDERS: ADMIT Student in an Organized Health Care Education/Training Program; ATTEND Student in an Organized Health Care Education/Training Program
DX: A08.39 Other viral enteritis (principal); N17.9 Acute kidney failure, unspecified; J96.11 Chronic respiratory failure with hypoxia; I69.351 Hemiplegia and hemiparesis following cerebral infarction affecting right dominant side; E86.0 Dehydration; J44.9 Chronic obstructive pulmonary disease, unspecified; N18.3 Chronic kidney disease, stage 3 (moderate); I48.91 Unspecified atrial fibrillation; E03.9 Hypothyroidism, unspecified; Z79.01 Long term (current) use of anticoagulants; Z87.891 Personal history of nicotine dependence
CPT/HCPCS: 84484-ER; 96374; 97116-GP; 97162-GP; 97530-GP; G0378; J2405; J3475; Q9967